=== PATIENT | female | born 1970 | race Caucasian/White ===

== ENCOUNTER 2021-05-17 18:52 | Inpatient (IN) ==
[~2021-05-17 18:52] MED LIST: HYDROmorphone 2 MG/1 ML VIAL ONE; LIDOCAINE 1% 20 ML VIAL ONE; MIDAZOLAM 2 MG/2 ML VIAL ONE
[2021-05-17] MEDS ORDERED: HEPARIN 5,000 UNIT/1 ML VIAL ONE (19:16)
[2021-05-17] MEDS ORDERED: TIROFIBAN 5,000 MCG/100 ML PREMIX IV ONE (19:17)
[2021-05-17] MEDS ORDERED: NITROGLYCERIN DRIP 50 MG/250 ML BOTTLE IV ONE (19:33)
[2021-05-17] MEDS ORDERED: LABETALOL 20 MG/4 ML SYRINGE IV ONE (19:48)
[2021-05-17] MEDS ORDERED: PRASUGREL 10 MG TABLET ONE (20:06)
[2021-05-17] MEDS ORDERED: ASPIRIN 325 MG TABLET ONE (20:07)
[2021-05-17] MEDS ORDERED: NITROGLYCERIN DRIP 50 MG/250 ML BOTTLE IV PRN (20:13)
[2021-05-17] MEDS ORDERED: ONDANSETRON 4 MG/2 ML VIAL IV PRN (20:22)
[2021-05-17] MEDS ORDERED: NITROGLYCERIN SL 0.4 MG TABLET SL PRN (20:22)
[2021-05-17] MEDS ORDERED: HYDROmorphone 2 MG/1 ML VIAL IV PRN (20:22)
[2021-05-17] MEDS ORDERED: TIROFIBAN 5,000 MCG/100 ML PREMIX IV SCH (20:30)
[2021-05-17] MEDS: METOPROLOL TARTRATE 25 MG TABLET PO SCH (22:27)
[2021-05-17] MEDS: ROSUVASTATIN 20 MG TABLET PO SCH (22:27)
[2021-05-17] MEDS: ZALEPLON 5 MG CAPSULE PO PRN (22:27)
[2021-05-18] MEDS ORDERED: INFLUENZA VIRUS VACCINE 0.5 ML SYRINGE IM ONE (03:10)
[2021-05-18 06:47] LABS: Basophils % 0.2 % (0.0-0.8); Eosinophils % 0.5 % (0.00-10.9); Hematocrit 37.8 VOL% (35.7-47.0); Hemoglobin 12.7 GM/DL (12.0-16.0); Immature Granulocytes % 0.6 %; Immature Granulocytes Absolute 0.04 #; Lymphocytes # 2.2 10*3/uL (1.4-4.0); Lymphocytes % 33.7 % (21.3-54.2); Mean Corpuscular HGB Conc 33.6 GM/DL (32-36); Mean Corpuscular Volume 98.2 FL (87-102); Mean Platelet Volume 10.3 FL (9.6-12.0); Monocytes % 4.7 % (1.7-12.7); Neutrophils % 60.3 % (38.7-73.9); Platelet Count 174 T/CUMM (130-400); Red Blood Count 3.85 MC/CUMM (3.8-5.5); Red Cell Distribution Width 17.6 % (9.3-17.3); White Blood Count 6.6 T/CUMM (4-12)
[2021-05-18 08:15] LABS: Blood Urea Nitrogen 10 MG/DL (7-18); CKMB % 21.5 %; Carbon Dioxide 21 MMOL/L (21-32); Estimated Glom Filtration Rate 138 ML/MIN; Glucose 114 MG/DL (74-106); Osmolality,Calculated 274.7 MOS/KG (273-304); Potassium 3.2 MMOL/L (3.5-5.1); Sodium 138 MMOL/L (136-145)
[2021-05-18 08:17] LABS: High Sensitive Troponin I* > 125000 ng/L (0-54)
[2021-05-18] MEDS: ASPIRIN EC 81 MG TABLET PO SCH (09:56)
[2021-05-18] MEDS: METOPROLOL TARTRATE 25 MG TABLET PO SCH ×2 (09:56→20:15)
[2021-05-18] MEDS: PRASUGREL 10 MG TABLET PO SCH (09:56)
[2021-05-18] MEDS: ACETAMINOPHEN 325 MG TABLET PO PRN (10:25)
[2021-05-18] MEDS ORDERED: POTASSIUM CHLORIDE 20 MEQ TABLET PO ONE (10:45)
[2021-05-18] MEDS ORDERED: ALPRAZolam 0.25 MG TABLET PO PRN (11:21)
[2021-05-18] MEDS: NICOTINE 21 MG/24 HR PATCH TRANSDERM SCH (11:50)
[2021-05-18] MEDS: lisinopriL 2.5 MG TABLET PO SCH (11:51)
[2021-05-18] MEDS: ISOSORBIDE MONONITRATE 30 MG TABLET PO SCH (11:51)
[2021-05-18 13:05] LABS: Barbiturates Screen,Urine Negative (Negative); Benzodiazepines Screen,Urine Positive (Negative); Cannabinoid Screen,Urine Negative (Negative); Opiate Screen,Urine Positive (Negative); Phencyclidine Screen,Urine Negative (Negative)
[2021-05-18] MEDS: ROSUVASTATIN 20 MG TABLET PO SCH (20:15)
[2021-05-18] MEDS: ZALEPLON 5 MG CAPSULE PO PRN (22:05)
[2021-05-19 05:37] LABS: Basophils % 0.1 % (0.0-0.8); Eosinophils % 0.4 % (0.00-10.9); Hematocrit 37.1 VOL% (35.7-47.0); Hemoglobin 12.5 GM/DL (12.0-16.0); Immature Granulocytes % 0.3 %; Immature Granulocytes Absolute 0.02 #; Lymphocytes % 26.4 % (21.3-54.2); Mean Corpuscular HGB Conc 33.7 GM/DL (32-36); Mean Corpuscular Volume 98.1 FL (87-102); Mean Platelet Volume 10.7 FL (9.6-12.0); Monocytes % 5.1 % (1.7-12.7); Neutrophils % 67.7 % (38.7-73.9); Platelet Count 147 T/CUMM (130-400); Red Blood Count 3.78 MC/CUMM (3.8-5.5); Red Cell Distribution Width 17.7 % (9.3-17.3); White Blood Count 7.6 T/CUMM (4-12)
[2021-05-19 06:09] LABS: Calcium 8.5 MG/DL (8.5-10.1); Osmolality,Calculated 278.3 MOS/KG (273-304); Potassium 3.6 MMOL/L (3.5-5.1); Risk Ratio 2.77; Thyroid Stimulating Hormone 1.48 uIU/ml (0.358-3.74)
[2021-05-19] MEDS: ASPIRIN EC 81 MG TABLET PO SCH (09:16)
[2021-05-19] MEDS: PRASUGREL 10 MG TABLET PO SCH (09:16)
[2021-05-19] MEDS: METOPROLOL TARTRATE 25 MG TABLET PO SCH ×2 (09:17→21:41)
[2021-05-19] MEDS: ISOSORBIDE MONONITRATE 30 MG TABLET PO SCH (09:18)
[2021-05-19] MEDS: lisinopriL 2.5 MG TABLET PO SCH (09:18)
[2021-05-19] MEDS: NICOTINE 21 MG/24 HR PATCH TRANSDERM SCH (09:22)
[2021-05-19] MEDS ORDERED: POTASSIUM CHLORIDE 10 MEQ TABLET PO ONE (10:59)
[2021-05-19] MEDS ORDERED: MAGNESIUM SULF RIDER 4 GM/100 ML PREMIX IV ONE (10:59)
[2021-05-19] MEDS ORDERED: POTASSIUM CHLORIDE 20 MEQ TABLET PO ONE ×2 (10:59→14:00)
[2021-05-19] MEDS ORDERED: SPIRONOLACTONE 25 MG TABLET PO SCH (11:04)
[2021-05-19] MEDS: SPIRONOLACTONE 25 MG TABLET PO SCH (12:21)
[2021-05-19] MEDS: ACETAMINOPHEN 325 MG TABLET PO PRN (12:22)
[2021-05-19] MEDS: ENOXAPARIN 40 MG/0.4 ML SYRINGE SUBCUT SCH (12:23)
[2021-05-19] MEDS: ROSUVASTATIN 20 MG TABLET PO SCH (21:41)
[2021-05-20 06:29] LABS: Basophils % 0.2 % (0.0-0.8); Eosinophils # 0.1 10*3/uL (0.0-0.87); Eosinophils % 1.6 % (0.00-10.9); Hematocrit 35.5 VOL% (35.7-47.0); Hemoglobin 11.6 GM/DL (12.0-16.0); Immature Granulocytes % 0.4 %; Immature Granulocytes Absolute 0.02 #; Lymphocytes % 35.2 % (21.3-54.2); Mean Corpuscular HGB Conc 32.7 GM/DL (32-36); Mean Corpuscular Volume 99.7 FL (87-102); Mean Platelet Volume 10.7 FL (9.6-12.0); Monocytes % 6.3 % (1.7-12.7); Neutrophils % 56.3 % (38.7-73.9); Platelet Count 173 T/CUMM (130-400); Red Blood Count 3.56 MC/CUMM (3.8-5.5); Red Cell Distribution Width 17.9 % (9.3-17.3); White Blood Count 5.7 T/CUMM (4-12)
[2021-05-20 07:01] LABS: Calcium 8.1 MG/DL (8.5-10.1); Potassium 3.8 MMOL/L (3.5-5.1)
[2021-05-20] MEDS ORDERED: METOPROLOL SUCCINATE XL 25 MG TABLET PO SCH (09:00)
[2021-05-20] MEDS: ASPIRIN EC 81 MG TABLET PO SCH (09:27)
[2021-05-20] MEDS: PRASUGREL 10 MG TABLET PO SCH (09:27)
[2021-05-20] MEDS: lisinopriL 2.5 MG TABLET PO SCH (09:28)
[2021-05-20] MEDS: SPIRONOLACTONE 25 MG TABLET PO SCH (09:29)
[2021-05-20] MEDS: ISOSORBIDE MONONITRATE 30 MG TABLET PO SCH (09:29)
[2021-05-20] MEDS: NICOTINE 21 MG/24 HR PATCH TRANSDERM SCH (09:31)
[2021-05-20] MEDS: ENOXAPARIN 40 MG/0.4 ML SYRINGE SUBCUT SCH (11:20)
[2021-05-20 11:41] VITALS: BP 111/77
[2021-05-20] MEDS: ACETAMINOPHEN 325 MG TABLET PO PRN (11:58)
== END 2021-05-20 13:27 | disposition home or self-care (01) | DRG 247 ==
LOC: N.CL 18:52 → N.ICU 18:52 → N.CL 19:43 → N.ICU 19:45 → N.SDSINP 19:45 → N.TELEN 05-18 15:29 → N.SDSINP 05-18 18:53 → N.CL 05-20 13:27 → N.TELEN 05-20 14:26
PROVIDERS: ADMIT Internal Medicine Cardiovascular Disease; ATTEND Internal Medicine Cardiovascular Disease
PROC: CLCCHCL (ICD-10-PCS; 2021-05-17 19:15)